=== PATIENT | male | born 1995 | race Caucasian/White ===

== ENCOUNTER 2016-08-15 18:56 | Emergency (ER) | payer SELFPAY ==
[2016-08-15] MEDS ORDERED: HYDROmorphone* 1 MG/ML 1 ML SYR IV ONE ×2 (19:15→21:12)
[2016-08-15] MEDS ORDERED: cefTRIAXone(*) 1 GM in NS 0.9% 50 ML* 50 ML IVPB ONE (19:15)
[2016-08-15] MEDS ORDERED: Ondansetron INJ* 2 MG/ML VIAL IV ONE (19:15)
--- NOTE | 2016-08-15 19:50 | RAD ---
HISTORY: Right hand crush injury COMPARISONS: None VIEWS: 4, Frontal, lateral, and oblique views of the right hand FINDINGS: BONE DENSITY: Normal. BONES: There is no displaced fracture. JOINTS: There is no arthropathy. ALIGNMENT: There is no dislocation. SOFT TISSUES: Unremarkable. 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 IF SYMPTOMS PERSIST, RECOMMEND REPEAT IMAGING.
[2016-08-15] MEDS ORDERED: Tetan/Diph/Pertus SYR(Tdap)* 0.5 ML SYR(BOOSTRIX) use SYR IM ONE (19:56)
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
[2016-08-15 22:34] VITALS: BP 146/64
== END 2016-08-15 23:03 | disposition short-term general hospital (02) ==
LOC: ED 18:56
DX: S67.21XA Crushing injury of right hand, initial encounter (principal); S61.411A Laceration without foreign body of right hand, initial encounter; W23.0XXA Caught, crushed, jammed, or pinched between moving objects, initial encounter; Y92.9 Unspecified place or not applicable; Z88.2 Allergy status to sulfonamides
CPT/HCPCS: 90715; 96372; 96374; 96375; 96376; 99283; J0696; J1170; J2405